=== PATIENT | male | born 1995 | race Caucasian/White ===

== ENCOUNTER 2020-11-03 18:33 | Emergency (ER) | payer OTHER ==
[~2020-11-03] VITALS: Ht 195.6 cm; Wt 136.1 kg
[~2020-11-03 18:33] MED LIST: DITROPAN XL5 M1 PO; HYDROCODONE-APA1 TA1 PO; IBUPROFEN 800800 M1 PO; IBUPROFEN 800800 MG PO; NORCO 5-325 TA1 EACH PO; TRAMADOL 50 MG50 MG PO
[2020-11-03] MEDS ORDERED: NAPROSYN500 MG PO (20:22)
[2020-11-03] MEDS ORDERED: TRAMADOL 50 MG50 MG PO (20:22)
[2020-11-03 20:46] VITALS: BP 151/91
== END 2020-11-03 20:46 | disposition home or self-care (01) ==
LOC: M.ERS 18:33
DX: M25.512 Pain in left shoulder (principal); Z98.890 Other specified postprocedural states

== ENCOUNTER 2020-11-11 15:04 | Emergency (ER) | payer OTHER ==
[~2020-11-11] VITALS: Ht 200.7 cm; Wt 136.1 kg
[~2020-11-11 15:04] MED LIST changes: +NAPROSYN500 MG PO
[2020-11-11] MEDS ORDERED: AMOXIL 875 MG875 M1 PO (15:37)
[2020-11-11] MEDS ORDERED: TRAMADOL 50 MG50 MG PO (15:37)
[2020-11-11 15:50] VITALS: BP 145/70
== END 2020-11-11 15:51 | disposition home or self-care (01) ==
LOC: M.ERS 15:04
DX: K04.7 Periapical abscess without sinus (principal)

== ENCOUNTER 2021-01-27 15:52 | Emergency (ER) | payer OTHER ==
[~2021-01-27] VITALS: Ht 200.7 cm; Wt 132.9 kg
[~2021-01-27 15:52] MED LIST changes: +AMOXIL 875 MG875 M1 PO
[2021-01-27] MEDS ORDERED: AMOXIL 875 MG875 M1 PO (16:16)
[2021-01-27] MEDS ORDERED: TRAMADOL 50 MG50 MG PO (16:16)
[2021-01-27 16:27] VITALS: BP 164/95
[2021-01-28] MEDS ORDERED: IBUPROFEN 800800 M1 PO (13:47)
== END 2021-01-27 16:28 | disposition home or self-care (01) ==
LOC: M.ERS 15:52
DX: K04.7 Periapical abscess without sinus (principal)

== ENCOUNTER 2021-01-28 13:27 | Emergency (ER) | payer OTHER ==
[~2021-01-28] VITALS: Ht 200.7 cm; Wt 132.9 kg
[2021-01-28] MEDS ORDERED: IBUPROFEN 800800 M1 PO (13:47)
[2021-01-28 14:00] VITALS: BP 154/96
== END 2021-01-28 14:00 | disposition home or self-care (01) ==
LOC: M.ERS 13:27
DX: K04.7 Periapical abscess without sinus (principal)

== ENCOUNTER 2021-07-17 03:20 | Emergency (ER) | payer OTHER ==
[~2021-07-17] VITALS: Ht 200.7 cm; Wt 127.0 kg
[2021-07-17 03:27] VITALS: BP 143/81
[2021-07-17] MEDS ORDERED: CLEOCIN HCL300 MG PO (03:50)
[2021-07-17] MEDS ORDERED: HYDROCODON-ACE1 EAC8 PO ×2 (03:50→12:26)
== END 2021-07-17 04:07 | disposition home or self-care (01) ==
LOC: M.ERS 03:20
DX: L03.011 Cellulitis of right finger (principal); Z98.890 Other specified postprocedural states